=== PATIENT | male | born 1985 | race Caucasian/White ===

== ENCOUNTER 2016-08-30 16:56 | Emergency (ER) | payer SELFPAY ==
[2016-08-30] MEDS ORDERED: OXYCODONE-ACETAMINOPHEN 5-325 MG TABLET PO ONE (18:44)
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
== END 2016-08-30 20:10 | disposition home or self-care (01) ==
LOC: ER 16:56
DX: R52 Pain, unspecified (principal); S16.1XXA Strain of muscle, fascia and tendon at neck level, initial encounter; S30.0XXA Contusion of lower back and pelvis, initial encounter; F17.200 Nicotine dependence, unspecified, uncomplicated; V89.2XXA Person injured in unspecified motor-vehicle accident, traffic, initial encounter
CPT/HCPCS: 72050; 99284

== ENCOUNTER 2016-09-02 14:20 | Emergency (ER) | payer OTHER ==
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
[2016-09-02 16:23] VITALS: BP 118/78
== END 2016-09-02 16:21 | disposition home or self-care (01) ==
LOC: ER 14:20
DX: S46.812A Strain of other muscles, fascia and tendons at shoulder and upper arm level, left arm, initial encounter (principal); M54.2 Cervicalgia; V87.7XXA Person injured in collision between other specified motor vehicles (traffic), initial encounter
CPT/HCPCS: 99283

== ENCOUNTER 2017-07-01 16:39 | Emergency (ER) | payer OTHER ==
[2017-07-01] MEDS ORDERED: OXYCODONE-ACETAMINOPHEN 5-325 MG TABLET PO ONE (19:11)
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
[2017-07-01 20:43] VITALS: BP 111/70
== END 2017-07-01 20:45 | disposition home or self-care (01) ==
LOC: ER 16:39
DX: S16.1XXA Strain of muscle, fascia and tendon at neck level, initial encounter (principal); M54.2 Cervicalgia; M79.604 Pain in right leg; M79.605 Pain in left leg; M54.9 Dorsalgia, unspecified; V49.50XA Passenger injured in collision with unspecified motor vehicles in traffic accident, initial encounter; Z91.013 Allergy to seafood
CPT/HCPCS: 72125; 73552; 99284

== ENCOUNTER 2017-12-03 19:39 | Emergency (ER) | payer SELFPAY ==
--- NOTE | 2017-12-03 20:56 | ER Document Report ---
ED Medical Screen (RME) - General Chief Complaint: Abdominal Pain Stated Complaint: ABDOMINAL PAIN Time Seen by Provider: 12/03/17 20:54 Mode of Arrival: Ambulatory Information source: Patient Notes: Patient presents with complaint of low abdominal and low back pain for the last 3-4 months. Patient reports that he has been getting worse over the last few weeks. Patient concerned that he may have cancer as he reports that cancer runs in his family. Patient denies any fever. Reports nausea and fatigue. Patient reports that he saw a doctor in [place] 2 months ago for the same symptoms, had a workup done but never heard anything back from them. Patient reports that he is a tobacco user, denies any EtOH or drug use. Patient reports past medical history of hyperlipidemia, hypertension and an unknown issue with his kidney and liver. Exam: Mild tenderness to palpation across low abdomen. I have greeted and performed a rapid initial assessment of this patient. A comprehensive ED assessment and evaluation of the patient, analysis of test results and completion of the medical decision making process will be conducted by additional ED providers. Dictation of this chart was performed using voice recognition software; therefore, there may be some unintended grammatical errors. TRAVEL OUTSIDE OF THE [place] IN LAST 30 DAYS: No - Related Data Allergies/Adverse Reactions: iodine [Iodine] Allergy (Verified 09/02/16 14:39) Shellfish * [Shellfish] Allergy (Verified 09/02/16 14:39) Past Medical History Renal/ Medical History: Reports: Hx Kidney Stones. Denies: Hx Peritoneal Dialysis Psychiatric Medical History: Reports: Hx Depression Infectious Medical History: Denies: Hx MRSA Past Surgical History: Reports: Hx Appendectomy, Hx Orthopedic Surgery - Immunizations Immunizations up to date: Yes Hx Diphtheria, Pertussis, Tetanus Vaccination: Yes Physical Exam - Vital signs Vitals: Temp Pulse Resp BP Pulse Ox 98.6 F 83 16 105/65 99 12/03/17 20:10 12/03/17 20:10 12/03/17 20:10 12/03/17 20:10 12/03/17 20:10 Course - Vital Signs Vital signs: Temp Pulse Resp BP Pulse Ox 98.6 F 83 16 105/65 99 12/03/17 20:10 12/03/17 20:10 12/03/17 20:10 12/03/17 20:10 12/03/17 20:10
[2017-12-03 21:39] LABS: ABSOLUTE EOSINOPHILS # (AUTO) 0.2 10^3/uL (0.0-0.6); ABSOLUTE LYMPHOCYTES (AUTO) 2.4 10^3/uL (0.5-4.7); ABSOLUTE MONOCYTES (AUTO) 0.8 10^3/uL (0.1-1.4); ABSOLUTE NEUT (AUTO) 4.9 10^3/uL (1.7-8.2); BASOPHILS % (AUTO) 0.4 % (0-2); EOSINOPHILS % (AUTO) 2.7 % (0-6); HEMATOCRIT 45.9 % (37.9-51.0); HEMOGLOBIN 15.6 g/dL (13.5-17.0); MEAN CORPUSCULAR HEMOGLOBIN 30.7 pg (27.0-33.4); MEAN CORPUSCULAR VOLUME 90 fl (80-97); PLATELET COUNT 364 10^3/uL (150-450); RED BLOOD COUNT 5.09 10^6/uL (4.35-5.55); RED CELL DISTRIBUTION WIDTH 13.7 % (11.5-14.0); SEGMENTED NEUTROPHILS % (AUTO) 57.9 % (42-78); TOTAL CELLS COUNTED % (AUTO) 100 %; WHITE BLOOD COUNT 8.4 10^3/uL (4.0-10.5)
[2017-12-03 21:45] LABS: AMORPHOUS SEDIMENT,URINE TRACE /HPF; APPEARANCE,URINE CLOUDY; BILIRUBIN,URINE NEGATIVE (NEGATIVE); COLOR,URINE YELLOW; GLUCOSE, URINE NEGATIVE (NEGATIVE); KETONES,URINE NEGATIVE (NEGATIVE); LEUKOCYTE ESTERASE,URINE NEGATIVE (NEGATIVE); NITRITE,URINE NEGATIVE (NEGATIVE); PROTEIN,URINE NEGATIVE (NEGATIVE); URINE SPECIFIC GRAVITY 1.009; UROBILINOGEN,URINE NEGATIVE mg/dL (<2.0)
[2017-12-03 21:54] LABS: ALANINE AMINOTRANSFERASE 27 U/L (21-72); ALBUMIN 4.8 g/dL (3.5-5.0); ALKALINE PHOSPHATASE 104 U/L (38-126); ANION GAP 16 (5-19); ASPARTATE AMINO TRANSFERASE 21 U/L (17-59); BILIRUBIN,DIRECT 0.2 mg/dL (0.0-0.4); BILIRUBIN,TOTAL 0.5 mg/dL (0.2-1.3); BLOOD UREA NITROGEN 8 mg/dL (7-20); CARBON DIOXIDE 30 mmol/L (22-30); CHLORIDE 96 mmol/L (98-107); GLUCOSE 111 mg/dL (75-110); LIPASE 381.3 U/L (23-300); POTASSIUM 4.5 mmol/L (3.6-5.0); SODIUM 142.1 mmol/L (137-145); TOTAL PROTEIN 8.5 g/dL (6.3-8.2)
[2017-12-04] MEDS ORDERED: CYCLOBENZAPRINE HCL 10 MG TABLET PO ONE (01:03)
[2017-12-04] MEDS ORDERED: IBUPROFEN 600 MG TABLET PO ONE (01:03)
[2017-12-04] MEDS ORDERED: LIDOCAINE 5% (700 MG) TRANSDERMAL ADH..PATCH TP ONE (01:03)
--- NOTE | 2017-12-04 01:05 | ER Document Report ---
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 He describes the pain as a throbbing, aching, intermittent pain mostly present at night. He states moving or lying on the area worsens the pain. He has not training to improve the pain. He denies a history of similar symptoms prior to the past 4 months. He saw his general doctor without resolution. The patient states that he is worried he might have cancer because his dad of cancer several months ago. He denies any unintentional weight loss, vomiting, hematochezia, hematemesis, shortness of breath, chest pain, fever or constitutional symptoms. TRAVEL OUTSIDE OF THE [place] IN LAST 30 DAYS: No - Related Data Allergies/Adverse Reactions: iodine [Iodine] Allergy (Verified 09/02/16 14:39) Shellfish * [Shellfish] Allergy (Verified 09/02/16 14:39) Past Medical History - General Information source: Patient - Social History Smoking Status: Current Every Day Smoker Frequency of alcohol use: None Drug Abuse: None Lives with: Spouse/Significant other Family History: Reviewed & Not Pertinent, Malignancy Patient has suicidal ideation: No Patient has homicidal ideation: No Renal/ Medical History: Reports: Hx Kidney Stones. Denies: Hx Peritoneal Dialysis Psychiatric Medical History: Reports: Hx Depression Infectious Medical History: Denies: Hx MRSA Past Surgical History: Reports: Hx Appendectomy, Hx Orthopedic Surgery - Immunizations Immunizations up to date: Yes Hx Diphtheria, Pertussis, Tetanus Vaccination: Yes Hx Pneumococcal Vaccination: 05/14/09 Review of Systems - Review of Systems Notes: Constitutional: Negative for fever. HENT: Negative for sore throat. Eyes: Negative for visual changes. Cardiovascular: Negative for chest pain. Respiratory: Negative for shortness of breath. Gastrointestinal: Positive for right lower abdominal pain Genitourinary: Negative for dysuria. Musculoskeletal: Positive for right low back pain Skin: Negative for rash. Neurological: Negative for headaches, weakness or numbness. 10 point ROS negative except as marked above and in HPI. Physical Exam - Vital signs Vitals: Temp Pulse Resp BP Pulse Ox 98.6 F 83 16 105/65 99 12/03/17 20:10 12/03/17 20:10 12/03/17 20:10 12/03/17 20:10 12/03/17 20:10 Interpretation: Normal Notes: PHYSICAL EXAMINATION: GENERAL: Well-appearing, well-nourished and in no acute distress. HEAD: Atraumatic, normocephalic. EYES: Pupils equal round and reactive to light, extraocular movements intact, sclera anicteric, conjunctiva are normal. ENT: nares patent, oropharynx clear without exudates. Moist mucous membranes. NECK: Normal range of motion, supple without lymphadenopathy LUNGS: Breath sounds clear to auscultation bilaterally and equal. No wheezes rales or rhonchi. HEART: Regular rate and rhythm without murmurs ABDOMEN: Soft, nontender, normoactive bowel sounds. No guarding, no rebound. No masses appreciated. EXTREMITIES: Normal range of motion, no pitting or edema. No cyanosis. NEUROLOGICAL: No focal neurological deficits. Moves all extremities spontaneously and on command. PSYCH: Normal mood, normal affect. SKIN: Warm, Dry, normal turgor, no rashes or lesions noted. Course - Re-evaluation Re-evalutation: 12/04/17 01:03 Patient presents with 4-5 months of nighttime right low back pain and right lower abdominal pain that is not present during the day. On examination he has no focal abdominal tenderness, rebound or guarding. No focal areas of midline tenderness, step-offs or deformities. Labs unremarkable. Clinical history and exam is not consistent with testicular torsion, epididymitis, acute event assessment bowel perforation, bowel obstruction. I have encouraged patient to seek treatment for his known hepatitis C. History appears most consistent with likely muscle spasms or irritation as it is only present at night after he has been up working all day. At this time will discharge with return precautions and follow-up recommendations. Verbal discharge instructions given a the bedside and opportunity for questions given. Medication warnings reviewed. Patient is in agreement with this plan and has verbalized understanding of return precautions and the need for primary care follow-up in the next 24-72 hours. - Vital Signs Vital signs: Temp Pulse Resp BP Pulse Ox 98.1 F 62 18 99/63 L 98 12/04/17 01:21 12/04/17 01:21 12/04/17 01:21 12/04/17 01:21 12/04/17 01:21 - Laboratory Result Diagrams: 12/03/17 21:22 12/03/17 21:22 Laboratory results interpreted by me: 12/03/17 21:22 Chloride 96 L Glucose 111 H Total Protein 8.5 H Lipase 381.3 H Discharge - Discharge Clinical Impression: Abdominal pain, chronic, right lower quadrant Chronic low back pain Qualifiers: Back pain laterality: right Sciatica presence: without sciatica Qualified Code( s): M54.5 - Low back pain Condition: Good Disposition: HOME, SELF-CARE Additional Instructions: For your pain: Take ibuprofen 600 mg every 6 hours as needed for pain. Take the Flexeril at night as needed for pain the prevents you from sleeping. Return if you have weight loss, persistent vomiting, worsening pain, fever greater than 100.4 F, or any other symptoms that are worrisome to you. Prescriptions: Cyclobenzaprine HCl [Flexeril 10 mg Tablet] 10 mg PO QHS PRN #15 tablet PRN Reason:
[2017-12-04 01:25] VITALS: BP 99/63
== END 2017-12-04 02:03 | disposition home or self-care (01) ==
LOC: ER 19:39
DX: G89.29 Other chronic pain (principal); R10.31 Right lower quadrant pain; M54.5 Low back pain; B19.20 Unspecified viral hepatitis C without hepatic coma; F17.200 Nicotine dependence, unspecified, uncomplicated; Z87.442 Personal history of urinary calculi; Z90.49 Acquired absence of other specified parts of digestive tract; Z91.013 Allergy to seafood; Z80.9 Family history of malignant neoplasm, unspecified
CPT/HCPCS: 36415; 80053; 81001; 83690; 85025; 99284

== ENCOUNTER 2018-02-28 13:53 | Emergency (ER) | payer SELFPAY ==
[2018-02-28 13:57] VITALS: BP 99/68
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
== END 2018-02-28 14:35 | disposition home or self-care (01) ==
LOC: ER 13:53
DX: G89.29 Other chronic pain (principal); F90.9 Attention-deficit hyperactivity disorder, unspecified type
CPT/HCPCS: 99281

== ENCOUNTER 2018-07-25 23:40 | Emergency (ER) | payer SELFPAY ==
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
[2018-07-26] MEDS ORDERED: IBUPROFEN 600 MG TABLET PO ONE (08:42)
[2018-07-26] MEDS ORDERED: TRAMADOL HCL 50 MG TABLET PO ONE (08:42)
[2018-07-26 08:55] VITALS: BP 98/67
== END 2018-07-26 08:58 | disposition home or self-care (01) ==
LOC: ER 23:40
DX: S00.83XA Contusion of other part of head, initial encounter (principal); R51 Headache; Y04.0XXA Assault by unarmed brawl or fight, initial encounter; Z87.442 Personal history of urinary calculi; Z91.013 Allergy to seafood
CPT/HCPCS: 70450; 99283

== ENCOUNTER 2018-09-23 15:16 | Emergency (ER) | payer SELFPAY ==
--- NOTE | 2018-09-23 16:22 | ER Document Report ---
HPI - HPI Time Seen by Provider: 09/23/18 16:10 Pain Level: 2 Context: Patient is a 33-year-old male who presents emergency department with a chief complaint of a sore throat. He has had his sore throat for the past 4 to 5 days. He denies any sick contacts. He does state that he does not know if he has had a fever. His temperature here in the emergency department is 97.8. Denies any difficulty breathing. - CONSTITUTIONAL Constitutional: REPORTS: Chills. DENIES: Fever - EENT EENT: REPORTS: Sore Throat. DENIES: Ear Pain, Nasal Drainage-Clear, Nasal Drainage-Purulent, Congestion, Eye problems - NEURO Neurology: DENIES: Headache - CARDIOVASCULAR Cardiovascular: DENIES: Chest pain - RESPIRATORY Respiratory: DENIES: Trouble Breathing, Coughing - REPRODUCTIVE Reproductive: DENIES: : - MUSCULOSKELETAL Musculoskeletal: DENIES: Extremity pain - DERM Skin Color: Normal Skin Problems: None Past Medical History - Social History Smoking Status: Never Smoker Family History: Reviewed & Not Pertinent, Malignancy Renal/ Medical History: Reports: Hx Kidney Stones. Denies: Hx Peritoneal Dialysis Psychiatric Medical History: Reports: Hx Depression Infectious Medical History: Denies: Hx MRSA Past Surgical History: Reports: Hx Appendectomy, Hx Orthopedic Surgery - Immunizations Immunizations up to date: Yes Hx Diphtheria, Pertussis, Tetanus Vaccination: Yes Hx Pneumococcal Vaccination: 05/14/09 Vertical Provider Document - CONSTITUTIONAL Agree With Documented VS: Yes Exam Limitations: No Limitations General Appearance: No Apparent Distress - INFECTION CONTROL TRAVEL OUTSIDE OF THE [place] IN LAST 30 DAYS: No - HEENT HEENT: Atraumatic, Normocephalic, PERRLA, Pharyngeal Erythema. negative: Conjuctival Injection, Pharyngeal Exudate, Pharyngeal Tenderness, Tympanic Membrane Red, Tympanic Membrane Bulging - NECK Neck: Normal Inspection, Supple - RESPIRATORY Respiratory: Breath Sounds Normal, No Respiratory Distress - CARDIOVASCULAR Cardiovascular: Regular Rate, Regular Rhythm Pulses: Normal: Radial - MUSCULOSKELETAL/EXTREMETIES Musculoskeletal/Extremeties: FROM - NEURO Level of Consciousness: Awake, Alert, Appropriate Motor/Sensory: No Motor Deficit, No Sensory Deficit, No Pronator Drift - DERM Integumentary: Warm, Dry, No Rash Course - Re-evaluation Re-evalutation: 09/23/18 16:22 Patient's rapid strep will be sent. 09/23/18 17:43 Patient's rapid strep test is negative. Throat culture was sent. I have advised him that he should take his allergy medication he is prescribed. He also mentioned that there is a new cat in his house. I have advised him that the cat dander may cause his sore throat and he is going to follow-up with a primary care provider in regards to this visit. I do not suspect a peritonsillar abscess, or any life-threatening etiology at this time. Verbal discharge instructions were given to the patient. They verbalized understanding. They are stable for discharge. - Vital Signs Vital signs: Temp Pulse Resp BP Pulse Ox 97.8 F 67 103/59 L 98 09/23/18 15:31 09/23/18 15:31 09/23/18 15:31 09/23/18 15:31 Discharge - Discharge Clinical Impression: Sore throat Condition: Stable Disposition: HOME, SELF-CARE Additional Instructions: You were seen today in the emergency department for sore throat. Your rapid strep test is negative. Your symptoms may be due to the cat you were exposed to. Please continue to take allergy medication. You can add Flonase to help with your symptoms. Please use as directed. Please follow-up with a primary care provider in regards to this visit. If you develop a fever greater than 100.4 F, or have any symptoms that are worrisome to you, please return to the emergency department. Prescriptions: Fluticasone Propionate [Flonase Nasal [place] 50 Mcg/[place] 16 gm] 2 sprays NASL DAILY #1 inhaler
[2018-09-23 17:57] VITALS: BP 110/67
== END 2018-09-23 17:57 | disposition home or self-care (01) ==
LOC: ER 15:16
DX: J02.9 Acute pharyngitis, unspecified (principal); R68.83 Chills (without fever)
CPT/HCPCS: 87070; 87880; 99283

== ENCOUNTER 2018-10-12 16:42 | Emergency (ER) | payer OTHER ==
[2018-10-12 16:48] VITALS: BP 104/58
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
== END 2018-10-12 17:18 | disposition home or self-care (01) ==
LOC: ER 16:42
DX: M54.2 Cervicalgia (principal); M25.512 Pain in left shoulder; V89.2XXA Person injured in unspecified motor-vehicle accident, traffic, initial encounter; Z87.442 Personal history of urinary calculi
CPT/HCPCS: 99283

== ENCOUNTER 2018-12-14 21:22 | Emergency (ER) | payer SELFPAY ==
[2018-12-14 21:30] VITALS: BP 132/54
--- NOTE | 2018-12-14 21:55 | ER Document Report ---
ED Medical Screen (RME) - General Chief Complaint: Fall Injury Stated Complaint: FALL/BACK PAIN Time Seen by Provider: 12/14/18 21:45 Notes: Patient is a 33-year-old male presents to the emergency department with a chief complaint of low back pain. Patient states about 2 hours ago he was repairing shingles on a roof when he was on the telephone and walked right off the roof because he was not paying attention. Patient states this is about 9 to 10 feet. Patient states he did fall into the bushes and states that they caught his fall. Patient states he fell in between a standing in a sitting position. Patient denies head or neck pain. Patient denies loss of consciousness. Patient denies blood thinners. Patient denies loss of bowel or bladder. Patient denies numbness or tingling to the lower extremities. Patient states that he is having some lower back pain specifically on the right side as it feels like muscle. TRAVEL OUTSIDE OF THE [place] IN LAST 30 DAYS: No - Related Data Allergies/Adverse Reactions: iodine [Iodine] Allergy (Verified 12/14/18 21:23) Shellfish * [Shellfish] Allergy (Verified 12/14/18 21:23) Past Medical History Renal/ Medical History: Reports: Hx Kidney Stones. Denies: Hx Peritoneal Dialysis Psychiatric Medical History: Reports: Hx Depression Infectious Medical History: Denies: Hx MRSA Past Surgical History: Reports: Hx Appendectomy, Hx Orthopedic Surgery - Immunizations Immunizations up to date: Yes Hx Diphtheria, Pertussis, Tetanus Vaccination: Yes Physical Exam - Vital signs Vitals: Temp Pulse Resp BP Pulse Ox 97.9 F 90 16 132/54 H 100 12/14/18 21:26 12/14/18 21:26 12/14/18 21:26 12/14/18 21:26 12/14/18 21:26 - Back Back: Normal, Vertebra tenderness Notes: Lumbar midline tenderness Course - Re-evaluation Re-evalutation: 12/14/18 21:55 I have greeted and performed a rapid initial assessment of this patient. A comprehensive ED assessment and evaluation of the patient, analysis of test results and completion of the medical decision making process will be conducted by additional ED providers. - Vital Signs Vital signs: Temp Pulse Resp BP Pulse Ox 97.9 F 90 16 132/54 H 100 12/14/18 21:26 12/14/18 21:26 12/14/18 21:26 12/14/18 21:26 12/14/18 21:26
--- NOTE | 2018-12-14 22:39 | RADIOLOGY REPORT (SQ) ---
5 VIEWS OF LUMBAR SPINE EXAM DATE: 12/14/2018 9:52 PM CDT HISTORY: Lower back pain. COMPARISON: None. FINDINGS: No acute compression fracture is seen. There is normal alignment without subluxation. The disc spaces are preserved. The sacroiliac joints are intact. No evidence of spondylolysis on the oblique views. IMPRESSION: No acute compression fracture of the lumbar spine is seen. However, please note that if there is point tenderness or high clinical concern, a CT scan is recommended.
--- NOTE | 2018-12-14 22:46 | RADIOLOGY REPORT (SQ) ---
EXAM DESCRIPTION: XR SACRUM COCCYX 2 OR MORE VIEWS COMPLETED DATE/TME: 12/14/2018 21:53 CLINICAL HISTORY: 33 years, Male, fall off roof, lower back pain COMPARISON: None. NUMBER OF VIEWS: TECHNIQUE: LIMITATIONS: None. FINDINGS: No evidence of sacral or coccyx fracture. Mineralization of bone appears normal. IMPRESSION: No fracture. copyright 2010 [employer]- All Rights Reserved
[2018-12-14] MEDS ORDERED: HYDROCODONE/ACETAMINOPHEN 5-325 MG (6 TAB/ER DISP) PO PRN (22:57)
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
== END 2018-12-14 23:50 | disposition home or self-care (01) ==
LOC: ER 21:22
DX: M54.5 Low back pain (principal); M54.9 Dorsalgia, unspecified; W13.2XXA Fall from, out of or through roof, initial encounter; F17.200 Nicotine dependence, unspecified, uncomplicated
CPT/HCPCS: 72110; 72220; 99283

== ENCOUNTER 2018-12-19 13:12 | Emergency (ER) | payer OTHER ==
--- NOTE | 2018-12-19 13:55 | ER Document Report ---
HPI - HPI Patient complains to provider of: low back pain Time Seen by Provider: 12/19/18 13:40 Onset: Other Onset/Duration: Persistent Quality of pain: Achy Severity: Moderate Pain Level: 3 Context: This 33-year-old male presents emergency department with complaints of low back pain since he fell off a roof approximately 5 days ago. The roof was approximately 8 feet high, pt landed in bushes. Patient received x-rays and pain medication here at [facility]. he was instructed to return to the emergency department for continued pain. Patient reports he still hurting. He denies urinary or bowel incontinence or retention. Denies numbness tingling. Ambulating without any problems. Patient is still working. Just reports it hurts when he bends over, no fever vomiting diarrhea. Associated Symptoms: None Exacerbated by: Denies Relieved by: Denies Similar symptoms previously: Yes Recently seen / treated by doctor: Yes - REPRODUCTIVE Reproductive: DENIES: : Past Medical History - General Information source: Patient - Social History Smoking Status: Current Every Day Smoker Cigarette use (# per day): Yes Frequency of alcohol use: Occasional Drug Abuse: None Family History: Reviewed & Not Pertinent, Malignancy Patient has suicidal ideation: No Patient has homicidal ideation: No Renal/ Medical History: Reports: Hx Kidney Stones. Denies: Hx Peritoneal Dialysis Psychiatric Medical History: Reports: Hx Depression Infectious Medical History: Denies: Hx MRSA Past Surgical History: Reports: Hx Appendectomy, Hx Orthopedic Surgery - Immunizations Immunizations up to date: Yes Hx Diphtheria, Pertussis, Tetanus Vaccination: Yes Hx Pneumococcal Vaccination: 05/14/09 Vertical Provider Document - CONSTITUTIONAL Agree With Documented VS: Yes Exam Limitations: No Limitations General Appearance: WD/WN, No Apparent Distress - Patient ambulating without problems no grimacing - INFECTION CONTROL TRAVEL OUTSIDE OF THE [place] IN LAST 30 DAYS: No - HEENT HEENT: Atraumatic, Normocephalic - NECK Neck: Supple - RESPIRATORY Respiratory: No Respiratory Distress - CARDIOVASCULAR Cardiovascular: Regular Rate - GI/ABDOMEN Gastrointestinal: Abdomen Soft, Abdomen Non-Tender - BACK Back: Normal Inspection - No obvious deformity no swelling no erythema no warmth complains of low vertebral tenderness L5, Sacral area, good distal movement, ambulating without problems, no weakness - MUSCULOSKELETAL/EXTREMETIES Musculoskeletal/Extremeties: MAEW, FROM, Non-Tender Course - Re-evaluation Re-evalutation: 12/19/18 14:36 33 year old male returns for c/o low back pain since falling off a roof one week ago. Urine Color STRAW 12/19/18 13:51 Urine Appearance CLEAR 12/19/18 13:51 Urine pH 6.0 (5.0-9.0) 12/19/18 13:51 Ur Specific [place] 1.005 12/19/18 13:51 Urine Protein NEGATIVE mg/dL (NEGATIVE) 12/19/18 13:51 Urine Glucose (UA) NEGATIVE mg/dL (NEGATIVE) 12/19/18 13:51 Urine Ketones NEGATIVE mg/dL (NEGATIVE) 12/19/18 13:51 Urine Blood NEGATIVE (NEGATIVE) 12/19/18 13:51 Urine Nitrite NEGATIVE (NEGATIVE) 12/19/18 13:51 Ur Leukocyte Esterase NEGATIVE (NEGATIVE) 12/19/18 13:51 UA negative 12/19/18 15:[address] 12/19/18 13:50 IMPRESSION: Right-sided L4-5 and L5-S1 foraminal narrowing from disc bulge and facet hypertrophy. 12/19/18 Patient was instructed on results of CT. Instructed to follow-up with his primary care to get a referral to orthopedics spinal specialist he verbalized understand all instructions. Patient looks in no distress denies urinary bowel incontinence or retention. He was instructed on red flags of back pain and to return here for any of the symptoms. He verbalized understanding to all instructions. - Vital Signs Vital signs: Temp Pulse Resp BP Pulse Ox 97.4 F 91 20 106/69 99 12/19/18 13:15 12/19/18 13:15 12/19/18 13:15 12/19/18 13:15 12/19/18 13:15 Discharge - Discharge Clinical Impression: L4-L5 disc bulge Low back pain Qualifiers: Chronicity: unspecified Back pain laterality: unspecified Sciatica presence: without sciatica Qualified Code(s): M54.5 - Low back pain Condition: Stable Disposition: HOME, SELF-CARE Instructions: Use of [id number]-Gys-Fsurrgl Ibuprofen ([facility]), Ice Packs ([facility]), Low Back Pain ([facility]) Additional Instructions: *You have been evaluated for back pain, bulging disc *Take ibuprofen as indicated *Rest/Ice packs as indicated *take medication for acute pain *Follow up with a primary care provider within one week for recheck or referral to orthopedics as indicated *Return to ED for worsening condition, changes, needs, difficulty voiding or having a bowel movement, worsening pain, fever Prescriptions: Oxycodone HCl/Acetaminophen [Percocet 5-325 mg Tablet] 1 tab PO ASDIR PRN #15 tablet PRN Reason:
[2018-12-19 14:08] LABS: APPEARANCE,URINE CLEAR; BILIRUBIN,URINE NEGATIVE (NEGATIVE); COLOR,URINE STRAW; GLUCOSE, URINE NEGATIVE (NEGATIVE); KETONES,URINE NEGATIVE (NEGATIVE); LEUKOCYTE ESTERASE,URINE NEGATIVE (NEGATIVE); NITRITE,URINE NEGATIVE (NEGATIVE); PROTEIN,URINE NEGATIVE (NEGATIVE); URINE SPECIFIC GRAVITY 1.005; UROBILINOGEN,URINE NEGATIVE mg/dL (<2.0)
[2018-12-19 14:14] LABS: ADD MANUAL MICROSCOPIC YES
[2018-12-19] MEDS ORDERED: IBUPROFEN 800 MG TABLET PO ONE (15:27)
--- NOTE | 2018-12-19 15:54 | RADIOLOGY REPORT (SQ) ---
EXAM DESCRIPTION: CT LUMBAR SPINE WITHOUT COMPLETED DATE/TIME: 12/19/2018 2:56 pm REASON FOR STUDY: fall, still hurting COMPARISON: Lumbar spine plain films 12/14/2018 TECHNIQUE: Axial images acquired through the lumbar spine without intravenous contrast. Images revi ewed with lung, soft tissue and bone windows. Reconstructed coronal and sagittal MPR images reviewed . All images stored on PACS. All CT scanners at this facility use dose modulation, iterative reconstruction, and/or weight based d osing when appropriate to reduce radiation dose to as low as reasonably achievable (ALARA). [facility]: Dose Right [facility]: CareDose [facility]: Dose Right [facility]: Teradose 4D [facility]: DinnDinn RADIATION DOSE: 15.6 mGy. LIMITATIONS: None. FINDINGS: SEGMENTATION: Normal. No transitional anatomy. ALIGNMENT: Normal. VERTEBRAL BODIES: No fractures. No dislocation. No acute findings. DISCS: T12-L1, L1-2, L2-3 and L3-4 are unremarkable. At L4-5, broad diffuse posterior disc bulge and bony spurring is present right greater than left. Th ere is mild bilateral facet and ligament flavum thickening. Mild central canal stenosis is present w ith flattening of the thecal sac into a triangular shape best shown on axial image 62. There is mode rate to high-grade right L4-5 foraminal narrowing from disc bulge and bony spurring, with partial eff acement of the fat around the exiting right L4 nerve root in the neural foramen on sagittal reconstru ction image 21. Mild left foraminal narrowing without exiting left L4 nerve root impingement. At L5-S1, there is asymmetric right-sided foraminal and lateral disc bulge and bony spurring with hig h-grade right foraminal narrowing best shown on sagittal images 19 and 20. Partial effacement of the fat around the exiting right L5 nerve root in the neural foramen. PEDICLES, TRANSVERSE PROCESSES: No fractures. No dislocation. FACETS, POSTERIOR ELEMENTS: No fractures. No dislocation. HARDWARE: None in the spine. VISUALIZED RIBS: No fractures. 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 IMPRESSION: Right-sided L4-5 and L5-S1 foraminal narrowing from disc bulge and facet hypertrophy. TECHNICAL DOCUMENTATION: JOB ID: [id number] Quality ID # [id number]: Final reports with documentation of one or more dose reduction techniques (e.g., Au tomated exposure control, adjustment of the mA and/or kV according to patient size, use of iterative reconstruction technique) 2010 [employer]- All Rights Reserved Reading location - IP/workstation name: [email or web address]
[2018-12-19 16:16] VITALS: BP 101/57
== END 2018-12-19 16:16 | disposition home or self-care (01) ==
LOC: ER 13:12
DX: M51.26 Other intervertebral disc displacement, lumbar region (principal); M54.5 Low back pain; W13.2XXD Fall from, out of or through roof, subsequent encounter; F17.210 Nicotine dependence, cigarettes, uncomplicated
CPT/HCPCS: 72131; 81001; 99284

== ENCOUNTER 2018-12-22 13:55 | Emergency (ER) | payer BC, OTHER ==
--- NOTE | 2018-12-22 14:37 | ER Document Report ---
ED Skin Rash/Insect Bite/Abscs - General Chief Complaint: Skin Problem Stated Complaint: POSSIBLE ALLERGIC REACTION Time Seen by Provider: 12/22/18 14:23 Primary Care Provider: [facility] [Provider Group] - Follow up as needed Mode of Arrival: Ambulatory Information source: Patient Notes: 33-year-old male presented to ED for complaint of rash and itching all over his body. Patient states he was seen on December 14 after he fell injuring his back. He states he had back pain and they started him on hydrocodone. He states when he ran out of that on the eighth he came back in because his pain was actually hurting worse. He states they put him on oxycodone. He states he started itching after the oxycodone so he stopped taking that but he does not have any more of the hydrocodone and is itching all over and cannot stand the itching. Patient is alert oriented respirations regular and unlabored speaking in full sentences walking with even steady gait. Patient has no signs or symptoms of cauda equina. He is walking freely. TRAVEL OUTSIDE OF THE [place] IN LAST 30 DAYS: No - HPI Patient complains to provider of: Skin rash/lesion Onset: Other - On 20 December Onset/Duration: Persistent Quality of pain: Other - Continued pain in his back but itching from the sacrum Severity: Mild Pain Level: 2 Skin Character: Rash Quality of rash: Itchy Identify cause: Yes - He states is from the oxycodone Exacerbated by: Other - Continues to have pain from his back pain Relieved by: Denies Similar symptoms previously: Yes Recently seen / treated by doctor: Yes - Related Data Allergies/Adverse Reactions: iodine [Iodine] Allergy (Verified 12/19/18 13:12) Shellfish * [Shellfish] Allergy (Verified 12/19/18 13:12) Past Medical History - General Information source: Patient - Social History Smoking Status: Current Every Day Smoker Cigarette use (# per day): Yes - Pack a day Smoking Education Provided: Yes - 4 minutes Frequency of alcohol use: Occasional Drug Abuse: Marijuana Occupation: Construction Lives with: Family Family History: Reviewed & Not Pertinent, Malignancy Patient has suicidal ideation: No Patient has homicidal ideation: No - Past Medical History Cardiac Medical History: Reports: None Pulmonary Medical History: Reports: None EENT Medical History: Reports: None Neurological Medical History: Reports: None Endocrine Medical History: Reports: None Renal/ Medical History: Reports: Hx Kidney Stones Malignancy Medical History: Reports None GI Medical History: Reports: None Musculoskeletal Medical History: Reports Hx Musculoskeletal Deformity, Reports Hx Musculoskeletal Trauma Skin Medical History: Reports None Psychiatric Medical History: Reports: Hx Anxiety, Hx Depression Traumatic Medical History: Reports: None Infectious Medical History: Reports: None Past Surgical History: Reports: Hx Appendectomy, Hx Orthopedic Surgery - Immunizations Immunizations up to date: Yes Hx Diphtheria, Pertussis, Tetanus Vaccination: Yes Hx Pneumococcal Vaccination: 05/14/09 Review of Systems - Review of Systems Constitutional: No symptoms reported EENT: No symptoms reported Cardiovascular: No symptoms reported Respiratory: No symptoms reported Gastrointestinal: No symptoms reported Genitourinary: No symptoms reported Male Genitourinary: No symptoms reported Musculoskeletal: No symptoms reported Skin: No symptoms reported, Rash - With picked skin and scratches from itching Hematologic/Lymphatic: No symptoms reported Neurological/Psychological: No symptoms reported -: Yes All other systems reviewed and negative Physical Exam - Vital signs Vitals: Temp Pulse Resp BP Pulse Ox 98.4 F 81 18 100/67 98 12/22/18 14:06 12/22/18 14:06 12/22/18 14:06 12/22/18 14:06 12/22/18 14:06 Interpretation: Normal - General General appearance: Appears well, Alert - HEENT Head: Normocephalic, Atraumatic Eyes: Normal Pupils: PERRL - Respiratory Respiratory status: No respiratory distress Chest status: Nontender Breath sounds: Normal Chest palpation: Normal - Cardiovascular Rhythm: Regular Heart sounds: Normal auscultation Murmur: No - Abdominal Inspection: Normal Distension: No distension Bowel sounds: Normal Tenderness: Nontender Organomegaly: No organomegaly - Back Back: Normal, Tender Notes: No signs or symptoms of cauda equina, no loss of control of bowel bladder, no loss of control of lower extremities, no loss of sensation to the lower ext remities and no saddle anesthesia. - Extremities General upper extremity: Normal inspection, Nontender, Normal color, Normal ROM, Normal temperature General lower extremity: Normal inspection, Nontender, Normal color, Normal ROM, Normal temperature, Normal weight bearing. No: Fabiola's sign - Neurological Neuro grossly intact: Yes Cognition: Normal Orientation: AAOx4 Joann Coma Scale Eye Opening: Spontaneous [place] Coma Scale Verbal: Oriented [place] Coma Scale Motor: Obeys Commands [place] Coma Scale Total: 15 Speech: Normal Motor strength normal: LUE, RUE, LLE, RLE Sensory: Normal - Psychological Associated symptoms: Normal affect, Normal mood - Skin Skin Temperature: Warm Skin Moisture: Dry Skin Color: Normal Skin irregularity: Rash, other - Open scratched skin Location of irregularity: Generalized - Except for the center of his back Course - Vital Signs Vital signs: Temp Pulse Resp BP Pulse Ox 98.0 F 69 16 111/66 98 12/22/18 15:43 12/22/18 15:43 12/22/18 15:43 12/22/18 15:43 12/22/18 15:43 Discharge - Discharge Clinical Impression: Urticaria due to drug allergy, L4-L5 disc bulge Condition: Stable Disposition: HOME, SELF-CARE Instructions: Family Physicians / Practices Additional Instructions: LOW BACK PAIN: Three out of every four people will have an episode of disabling back pain during their lifetime. Most commonly the pain is due to straining of the muscles and ligaments in the low back. Usual treatment includes: (1) Rest on a firm surface. Avoid lying on your stomach. (2) Ice pack the painful area. After a few days, gentle heat may be used intermittently to relax the area, or ice packs can be continued. (3) Medication may be needed -- muscle relaxers and antiinflammatory medicines are commonly used. (4) As the back improves, exercises are prescribed to strengthen the back and abdominal muscles. Your doctor will advise you on the proper care for your back at each stage in your recovery. You may be better in a few days -- or healing may take several weeks. If new symptoms of a "herniated disc" (radiation of pain, numbness, or tingling down the back of the leg or weakness in the leg) occur, you should be re-examined. Further testing may be necessary. ACUTE ALLERGIC REACTION: Your symptoms are due to an allergic reaction. Allergy can cause hives, swelling of the hands, feet, and face, hoarseness, and difficulty swallowing or breathing. It may be due to exposure to medication, animal dander, foods, infection, or insect bites. Medication is a common cause, even when prior use of this same medication caused no problems. Acute treatment may include adrenalin and antihistamines. Usually, the specific allergic agent can't be identified unless repeated episodes occur. Home treatment includes the following: (1) Stop any suspicious medications. This will be discussed with you. (2) Oral antihistamines for the next four to five days. Example, diphenhydramine (Benadryl) every four hours. (3) You may also use cimetidine (Tagamet), ranitidine (Zantac), or famotidine (Pepcid) every four hours if diphenhydramine is not controlling itching and hives. (4) Avoid aspirin until the hives completely disappear. (5) Avoid hot baths or showers until the hives are completely gone. Call the doctor if faintness, difficulty swallowing, tightness in the chest, or wheezing occurs. ACID-SUPPRESSING MEDICATION: You have a prescription for medicine which reduces the stomach's secretion of acid. Examples include Zantac, Tagament, and Pepcid. These drugs are often used to allow healing of ulcers or esophagitis. They may be needed to prevent recurrence of ulcers in some patients, or to prevent damage from acid reflux in the esophagus. Take all medication as prescribed, even after the pain is gone. Regular antacids may be added as needed if you have symptoms while taking this medicine. These medications sometimes are prescribed for allergic reactions because they have anti-histaminic effects and relieve the rash and itching of the reaction. There are usually no side effects from this medication. But, in rare cases and particularly in the elderly, serious problems can occur. Contact your doctor if there is fever, rash, hallucinations, confusion, or unusual bruising. Contact your doctor at once if you develop lightheadedness, black or bloody stool, or bloody vomitus. USE OF DIPHENHYDRAMINE: The use of diphenhydramine (Benadryl) has been recommended to control allergic symptoms. The 25 mg strength is available over- the-counter, as well as the elixir. This antihistamine is used for many symptoms. It's useful for itching, watering eyes and nose, allergic swelling, hives, and insect stings. The medication can be repeated four times daily. Age Elixir (12.5 mg/tsp) 25 mg pill 2-3 yr 1/2 tsp 4-8 yr 1 tsp 9-14 yr 2 tsp one tab adult 1-2 tabs Antihistamines may cause drowsiness, especially with the first dose. Do not operate machinery or drive while under the effects of the medication. Do not combine the medication with alcohol, or with any other medication without talking to your doctor. ORAL NARCOTIC MEDICATION: As we discussed after this prescription you will get no more narcotics for the back pain. You need to follow-up with primary doctor or someone to get your pain medications. You do have a new diagnosis of bulging disc since the eighth of this month so you are getting some narcotics today you will only be getting 10 pills and then you need to follow-up with somebody to get further medications if you require them. You also need to follow-up with a back specialist to treat your bulging disc. You have been given a prescription for pain control. This medication is a narcotic. It's best taken with food, as nausea can result if taken on an empty stomach. Don't operate machinery or drive within six hours of taking this medication. Do not combine this medicine with alcohol, or with any medication which can cause sedation (such as cold tablets or sleeping pills) unless you get permission from the physician. Narcotics tend to cause constipation. If possible, drink plenty of fluids and eat a diet high in fiber and fruits. Please be aware that prescription narcotics also have the potential for abuse. People become addicted to these medications because of the general sense of wellbeing that they induce. This feeling along with a significant reduction in tension, anxiety, and aggression provides a stimulating seductive quality to these drugs. Once your pain is under control, we encourage you to discard your unused narcotics. ICE PACKS: Apply ice packs frequently against the painful area. Many different schedules are recommended, such as "20 minutes on, 20 minutes off" or "one hour ice, two hours rest." If you need to work, you may need to go longer between ic e treatments. You should plan to have the area ice packed AT LEAST one fourth of the time. The ice should be applied over the wrap, tape, or splint, or over a layer of cloth -- not directly against the skin. Some ice bags have a built-in cloth and can be put directly on the skin. WARM PACKS: After approximately two days, apply gentle heat (such as a heating pad or hot water bottle) for about 20 to 30 minutes about every two hours -- at least four times daily. Warmth and elevation will help you make a more rapid recovery, and will ease the pain considerably. Do not use HOT heat, and never apply heat for longer than 30 minutes. The continuous heat can invisibly damage skin and muscles -- even when no burn is seen on the surface. Damaged muscles can make you MORE sore. FOLLOW-UP CARE: If you have been referred to a physician for follow-up care, call the physicians office for an appointment as you were instructed or within the next two days. If you experience worsening or a significant change in your symptoms, notify the physician immediately or return to the Emergency Department at any time for re-evaluation. Prescriptions: Hydromorphone HCl [Dilaudid 2 mg Tablet] 2 mg PO Q8HP PRN #10 tablet PRN Reason: For Pain Scale 4-5 Forms: Smoking Cessation Education Referrals: [facility] ([facility]) [Provider Group] - Follow up as needed
[2018-12-22 15:07] LABS: APPEARANCE,URINE CLEAR; BILIRUBIN,URINE NEGATIVE (NEGATIVE); COLOR,URINE YELLOW; GLUCOSE, URINE NEGATIVE (NEGATIVE); KETONES,URINE NEGATIVE (NEGATIVE); LEUKOCYTE ESTERASE,URINE NEGATIVE (NEGATIVE); NITRITE,URINE NEGATIVE (NEGATIVE); PROTEIN,URINE NEGATIVE (NEGATIVE); URINE SPECIFIC GRAVITY 1.013; UROBILINOGEN,URINE NEGATIVE mg/dL (<2.0)
[2018-12-22 15:22] LABS: URINE AMPHETAMINES SCREEN NEGATIVE; URINE BARBITURATES SCREEN NEGATIVE; URINE BENZODIAZEPINES SCREEN NEGATIVE; URINE COCAINE SCREEN NEGATIVE; URINE MARIJUANA (THC) SCREEN NEGATIVE; URINE METHADONE SCREEN NEGATIVE; URINE PHENCYCLIDINE SCREEN NEGATIVE
[2018-12-22 15:44] VITALS: BP 111/66
== END 2018-12-22 15:49 | disposition home or self-care (01) ==
LOC: ER 13:55
DX: L50.0 Allergic urticaria (principal); T40.2X5A Adverse effect of other opioids, initial encounter; M51.86 Other intervertebral disc disorders, lumbar region; W19.XXXA Unspecified fall, initial encounter; F12.10 Cannabis abuse, uncomplicated; F17.210 Nicotine dependence, cigarettes, uncomplicated; Z71.6 Tobacco abuse counseling; Z91.013 Allergy to seafood
CPT/HCPCS: 80307; 81001; 99284; 99406

== ENCOUNTER 2019-01-03 13:16 | Emergency (ER) | payer SELFPAY ==
[2019-01-03 13:23] VITALS: BP 103/73
--- NOTE | 2019-01-03 14:31 | ER Document Report ---
HPI - HPI Time Seen by Provider: 01/03/19 14:00 Pain Level: 3 Notes: Patient is a 33-year-old male presented to the emergency department acute on chronic back pain. Patient reports low back pain across the entire lumbar region. He denies any recent trauma. He denies any loss of control of bowel or bladder, denies any urinary retention, fevers or saddle anesthesia. This is patient's third visit here in a short amount of time. Patient was seen here and was prescribed Percocet, he returned stating that he had an allergy to the Percocet per the providers note and was given Dilaudid. Patient returns again today requesting additional narcotic prescriptions. Patient has not followed up with any specialist. - REPRODUCTIVE Reproductive: DENIES: : Past Medical History - General Information source: Patient - Social History Smoking Status: Never Smoker Chew tobacco use (# tins/day): No Frequency of alcohol use: None Drug Abuse: None Family History: Reviewed & Not Pertinent, Malignancy Patient has suicidal ideation: No Patient has homicidal ideation: No Renal/ Medical History: Reports: Hx Kidney Stones. Denies: Hx Peritoneal Dialysis Musculoskeletal Medical History: Reports Hx Musculoskeletal Deformity, Reports Hx Musculoskeletal Trauma Psychiatric Medical History: Reports: Hx Anxiety, Hx Depression Infectious Medical History: Denies: Hx MRSA Past Surgical History: Reports: Hx Appendectomy, Hx Orthopedic Surgery - Immunizations Immunizations up to date: Yes Hx Diphtheria, Pertussis, Tetanus Vaccination: Yes Hx Pneumococcal Vaccination: 05/14/09 Vertical Provider Document - CONSTITUTIONAL Notes: PHYSICAL EXAMINATION: GENERAL: Well-appearing, well-nourished and in no acute distress. HEAD: Atraumatic, normocephalic. EYES: Pupils equal round extraocular movements intact, conjunctiva are normal. ENT: Nares patent NECK: Normal range of motion LUNGS: No respiratory distress Musculoskeletal: Normal range of motion, tenderness to palpation to bilateral lumbar paraspinous areas, no vertebral tenderness, step-off or deformity. NEUROLOGICAL: Normal speech, normal gait. PSYCH: Normal mood, normal affect. SKIN: Warm, Dry, normal turgor, no rashes or lesions noted. - INFECTION CONTROL TRAVEL OUTSIDE OF THE [place] IN LAST 30 DAYS: No Course - Re-evaluation Re-evalutation: Presentation of a well appearing patient complaining of acute on chronic back pain. No rapid progression of symptoms, systemic symptoms including fevers, chills, weight loss, history of recent bacterial infection, bilateral symptoms, numbness, weakness, difficulty walking, urinary retention or bowel incontinence, personal history of cancer, immunosuppression, diabetes, known AAA, or history of IV drug use. Exam is without point tenderness over vertebral bodies, pu lsatile abdominal mass, and patient has symmetric and intact lower extremity strength, sensation, and reflexes without clonus. 2+ symmetric medial malleolar and dorsalis pedis pulses Based on history and physical, I have a very low suspicion of a concerning etiology of pain including epidural compression syndrome, spinal infection, transverse myelitis, malignancy, abdominal aortic aneurysm, renal colic, acute lower extremity claudication, neurogenic claudication, ankylosing spondylitis, or other intra-abdominal process. Due to absence of concerning risk factors in history and physical as well as absence of rapidly progressive, severe, or bilateral symptoms, will defer imaging at this point. Plan to manage conservatively with outpatient analgesia, analgesia, and physical therapy. - Acetaminophen 650 q 4 + Toradol - Continue normal daily activities as tolerated by pain - Provide with standard musculoskeletal back pain exercise instructions - Instruct to follow up with primary care provider if symptoms not improving - Provide careful return precautions and concerning symptoms to watch for. Patient presenting with chronic back pain. Patient has seen multiple providers in this emergency department is received several prescriptions for controlled substances. Unfortunately the last time he was here he came stating that he was having an allergic reaction to the Percocet so Dilaudid was prescribed for him. Now he states that he was actually having an allergic reaction to hydrocodone and is requesting a Percocet prescription. I do not feel at this time it is appropriate to continue prescribing controlled substances to this patient. He needs to follow-up with either pain management or neurosurgery for further evaluation of his chronic back pain. - Vital Signs Vital signs: Temp Pulse Resp BP Pulse Ox 98.6 F 120 H 16 103/73 97 01/03/19 13:22 01/03/19 13:22 01/03/19 13:22 01/03/19 13:01/03/19 13:22 Discharge - Discharge Clinical Impression: Back pain Qualifiers: Back pain location: low back pain Chronicity: chronic Back pain laterality: bilateral Sciatica presence: without sciatica Qualified Code(s): M54.5 - Low back pain Condition: Stable Disposition: HOME, SELF-CARE Additional Instructions: You have been seen in the Emergency Department (ED) today for back pain. Your workup and exam have not shown any acute abnormalities and you are likely suffering from muscle strain or possible problems with your discs, but there is no treatment that will fix your symptoms at this time. Please take the Toradol that has been prescribed as directed. You should also purchase a local lidocaine cream such as "aspercreme with lidocaine" and use per bottle instructions to the affected area. Apply heat to the area as often as you are able. Continue to keep active and avoid prolonged periods of bed rest. Please follow up with your doctor as soon as possible regarding today's ED visit and your back pain. Return to the ED for worsening back pain, fever, weakness or numbness of either leg, or if you develop either (1) an inability to urinate or have bowel movements, or (2) loss of your ability to control your bathroom functions (if you start having "accidents"), or if you develop other new symptoms that concern you. We are not able to fill any additional controlled substance prescriptions in this emergency department for your back pain as you have been seen here multiple times for this. You must follow-up with pain management for any additional pain concerns and consider following up with primary care or neurosurgery for your chronic back pain. [facility] [address] Prescriptions: Ketorolac Tromethamine [Toradol 10 mg Tablet] 10 mg PO Q8HP PRN #20 tablet PRN Reason: Referrals: AVANI CHANEY MD [ACTIVE STAFF] - Follow up as needed
== END 2019-01-03 14:41 | disposition home or self-care (01) ==
LOC: ER 13:16
DX: M54.5 Low back pain (principal); M54.9 Dorsalgia, unspecified; G89.29 Other chronic pain; Z79.899 Other long term (current) drug therapy
CPT/HCPCS: 99283

== ENCOUNTER 2019-01-29 16:45 | Emergency (ER) | payer SELFPAY ==
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
[2019-01-29 17:31] VITALS: BP 114/59
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
== END 2019-01-29 18:22 | disposition home or self-care (01) ==
LOC: ER 16:45
DX: S09.90XA Unspecified injury of head, initial encounter (principal); S69.92XA Unspecified injury of left wrist, hand and finger(s), initial encounter; Y08.02XA Assault by strike by baseball bat, initial encounter; F17.200 Nicotine dependence, unspecified, uncomplicated
CPT/HCPCS: 70486; 99284

== ENCOUNTER 2019-02-06 19:36 | Emergency (ER) | payer OTHER ==
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
[2019-02-06] MEDS ORDERED: IBUPROFEN 600 MG TABLET PO ONE (20:28)
[2019-02-06] MEDS ORDERED: OXYCODONE-ACETAMINOPHEN 5-325 MG TABLET PO ONE (20:28)
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
[2019-02-06] MEDS ORDERED: HYDROCODONE/ACETAMINOPHEN 5-325 MG (6 TAB/ER DISP) PO PRN (22:13)
[2019-02-06 22:30] VITALS: BP 106/80
== END 2019-02-06 22:27 | disposition home or self-care (01) ==
LOC: ER 19:36
DX: M54.2 Cervicalgia (principal); V28.4XXA Motorcycle driver injured in noncollision transport accident in traffic accident, initial encounter; F17.200 Nicotine dependence, unspecified, uncomplicated; Z91.013 Allergy to seafood
CPT/HCPCS: 99283; 72125; L0172

== ENCOUNTER 2019-02-13 13:57 | Emergency (ER) | payer OTHER ==
[2019-02-13 14:06] VITALS: BP 101/68
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
--- NOTE | 2019-02-13 14:55 | RADIOLOGY REPORT (SQ) ---
EXAM DESCRIPTION: SHOULDER LEFT 2 OR MORE VIEWS COMPLETED DATE/TIME: 02/13/2019 2:34 pm REASON FOR STUDY: pain continues from last week COMPARISON: None. NUMBER OF VIEWS: Three views. TECHNIQUE: Internal rotation, external rotation, and Y view images acquired of the left shoulder. LIMITATIONS: None. FINDINGS: MINERALIZATION: Normal. BONES: No acute fracture. No worrisome bone lesions. JOINTS: No glenohumeral dislocation. Acromioclavicular joint intact. VISUALIZED LUNGS AND RIBS: No pneumothorax. No rib fracture. SOFT TISSUES: No radiopaque foreign body. OTHER: No other significant finding. IMPRESSION: NEGATIVE STUDY OF THE LEFT SHOULDER. NO RADIOGRAPHIC EVIDENCE OF ACUTE INJURY. TECHNICAL DOCUMENTATION: JOB ID: [id number] [employer]- All Rights Reserved Reading location - IP/workstation name: [email or web address]
[2019-02-13] MEDS ORDERED: HYDROCODONE/ACETAMINOPHEN 5-325 MG (6 TAB/ER DISP) PO PRN (14:56)
--- NOTE | 2019-02-13 14:57 | RADIOLOGY REPORT (SQ) ---
EXAM DESCRIPTION: L SPINE WHOLE COMPLETED DATE/TIME: 02/13/2019 2:34 pm REASON FOR STUDY: pain continues from last week COMPARISON: 12/14/2018, 08/26/2014 NUMBER OF VIEWS: Five views including obliques. TECHNIQUE: AP, lateral, oblique, and sacral radiographic images acquired of the lumbar spine. LIMITATIONS: None. FINDINGS: MINERALIZATION: Normal. SEGMENTATION: Normal. No transitional anatomy. ALIGNMENT: Normal. VERTEBRAE: Maintained height. No fracture or worrisome bone lesion. DISCS: Preserved height. No significant osteophytes or end plate irregularity. POSTERIOR ELEMENTS: Pedicles and facets are intact. No pars defect or posterior arch defects. HARDWARE: None in the spine. PARASPINAL SOFT TISSUES: Normal. PELVIS: Intact as visualized. No fractures or worrisome bone lesions. SI joints intact. OTHER: No other significant finding. IMPRESSION: NORMAL 5 VIEW LUMBAR SPINE. TECHNICAL DOCUMENTATION: JOB ID: [id number] [employer]- All Rights Reserved Reading location - IP/workstation name: [email or web address]
[2019-02-13] MEDS ORDERED: MORPHINE SULFATE 10 MG/ML INJ ONE (15:29)
== END 2019-02-13 15:32 | disposition home or self-care (01) ==
LOC: ER 13:57
DX: M54.5 Low back pain (principal); M25.512 Pain in left shoulder; V28.4XXA Motorcycle driver injured in noncollision transport accident in traffic accident, initial encounter; Z87.442 Personal history of urinary calculi
CPT/HCPCS: 72110

== ENCOUNTER 2019-05-10 19:28 | Emergency (ER) | payer SELFPAY ==
[2019-05-10] MEDS ORDERED: TRAMADOL HCL 50 MG TABLET PO ONE (20:01)
[2019-05-10 20:03] VITALS: BP 119/66
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
== END 2019-05-10 20:18 | disposition home or self-care (01) ==
LOC: ER 19:28
DX: S40.812A Abrasion of left upper arm, initial encounter (principal); S40.811A Abrasion of right upper arm, initial encounter; R51 Headache; M79.10 Myalgia, unspecified site; X99.0XXA Assault by sharp glass, initial encounter
CPT/HCPCS: 99283

== ENCOUNTER 2019-05-10 22:16 | Emergency (ER) | payer SELFPAY ==
[2019-05-11 01:32] LABS: ABSOLUTE BASOPHILS # (AUTO) 0.1 10^3/uL (0.0-0.2); ABSOLUTE EOSINOPHILS # (AUTO) 0.4 10^3/uL (0.0-0.6); ABSOLUTE LYMPHOCYTES (AUTO) 2.9 10^3/uL (0.5-4.7); ABSOLUTE MONOCYTES (AUTO) 0.7 10^3/uL (0.1-1.4); ABSOLUTE NEUT (AUTO) 3.5 10^3/uL (1.7-8.2); BASOPHILS % (AUTO) 0.8 % (0-2); EOSINOPHILS % (AUTO) 5.8 % (0-6); HEMATOCRIT 39.8 % (37.9-51.0); HEMOGLOBIN 13.7 g/dL (13.5-17.0); LYMPHOCYTES % (AUTO) 37.7 % (13-45); MEAN CORPUSCULAR HEMOGLOBIN 30.8 pg (27.0-33.4); MEAN CORPUSCULAR HGB CONC 34.5 g/dL (32.0-36.0); MEAN CORPUSCULAR VOLUME 89 fl (80-97); PLATELET COUNT 342 10^3/uL (150-450); RED BLOOD COUNT 4.45 10^6/uL (4.35-5.55); RED CELL DISTRIBUTION WIDTH 13.4 % (11.5-14.0); SEGMENTED NEUTROPHILS % (AUTO) 46.7 % (42-78); TOTAL CELLS COUNTED % (AUTO) 100 %; WHITE BLOOD COUNT 7.6 10^3/uL (4.0-10.5)
[2019-05-11 01:46] LABS: ACETAMINOPHEN < 10 ug/mL (10-30); ALBUMIN 3.9 g/dL (3.5-5.0); ALCOHOL < 10 mg/dL (NONE DETECTED); ALKALINE PHOSPHATASE 110 U/L (38-126); ANION GAP 10 (5-19); ASPARTATE AMINO TRANSFERASE 21 U/L (17-59); BILIRUBIN,DIRECT 0.2 mg/dL (0.0-0.4); BILIRUBIN,TOTAL 0.5 mg/dL (0.2-1.3); BLOOD UREA NITROGEN 14 mg/dL (7-20); CALCIUM 9.5 mg/dL (8.4-10.2); CARBON DIOXIDE 27 mmol/L (22-30); CHLORIDE 104 mmol/L (98-107); GLUCOSE 99 mg/dL (75-110); POTASSIUM 3.8 mmol/L (3.6-5.0); SALICYLATE < 1.0 mg/dL (2.0-20.0); TOTAL PROTEIN 7.3 g/dL (6.3-8.2)
[2019-05-11 01:48] LABS: APPEARANCE,URINE CLEAR; BILIRUBIN,URINE NEGATIVE (NEGATIVE); COLOR,URINE YELLOW; GLUCOSE, URINE NEGATIVE (NEGATIVE); KETONES,URINE NEGATIVE (NEGATIVE); LEUKOCYTE ESTERASE,URINE NEGATIVE (NEGATIVE); NITRITE,URINE NEGATIVE (NEGATIVE); PROTEIN,URINE NEGATIVE (NEGATIVE); URINE SPECIFIC GRAVITY 1.018; UROBILINOGEN,URINE NEGATIVE mg/dL (<2.0)
[2019-05-11 02:12] LABS: URINE BARBITURATES SCREEN NEGATIVE; URINE BENZODIAZEPINES SCREEN NEGATIVE; URINE COCAINE SCREEN NEGATIVE; URINE MARIJUANA (THC) SCREEN NEGATIVE; URINE METHADONE SCREEN NEGATIVE; URINE PHENCYCLIDINE SCREEN NEGATIVE
--- NOTE | 2019-05-11 04:29 | ER Document Report ---
ED General - General Chief Complaint: Medical Clearance Stated Complaint: MEDICAL CLEARANCE Time Seen by Provider: 05/11/19 04:27 Mode of Arrival: Ambulatory TRAVEL OUTSIDE OF THE [place] IN LAST 30 DAYS: No - HPI Patient complains to provider of: Patient reports that he has come to the ED for medical clearance. Onset: Other - Patient has a chronic substance abuse of methamphetamine and on occasion marijuana. Patient states he is interested in a rehab program. Denies any medical problems. Onset/Duration: Constant Quality of pain: No pain Severity: Moderate Pain Level: 0 Associated symptoms: Other - Skin itching from doing methamphetamine therefore patient scratches and claws at his skin causing multiple scratch bray on his chest arms and back. Notes: Denies suicidal or homicidal ideation. Denies any hallucinations. Denies any known medical problems. Patient states his substance use and abuse is methamphetamines and occasional marijuana. - Related Data Allergies/Adverse Reactions: iodine [Iodine] Allergy (Verified 05/11/19 01:09) Shellfish * [Shellfish] Allergy (Verified 05/11/19 01:09) Past Medical History - Social History Smoking Status: Never Smoker Frequency of alcohol use: None Drug Abuse: Methamphetamine Lives with: Friend Family History: Reviewed & Not Pertinent, Malignancy Patient has suicidal ideation: No Patient has homicidal ideation: No Renal/ Medical History: Reports: Hx Kidney Stones. Denies: Hx Peritoneal Dialysis Musculoskeletal Medical History: Reports Hx Musculoskeletal Deformity, Reports Hx Musculoskeletal Trauma Skin Medical History: Reports Other - Skin rash itching secondary to using methamphetamines. Psychiatric Medical History: Reports: Hx Anxiety, Hx Depression Infectious Medical History: Denies: Hx MRSA Past Surgical History: Reports: Hx Appendectomy, Hx Orthopedic Surgery - Immunizations Immunizations up to date: Yes Hx Diphtheria, Pertussis, Tetanus Vaccination: Yes Hx Pneumococcal Vaccination: 05/14/09 Physical Exam - Vital signs Vitals: Temp Pulse Resp BP Pulse Ox 98.1 F 80 18 100/61 100 05/10/19 22:28 05/10/19 22:28 05/10/19 22:28 05/10/19 22:28 05/10/19 22:28 Interpretation: Normal - General General appearance: Appears well, Alert - HEENT Head: Normocephalic, Atraumatic Eyes: Normal Pupils: PERRL - Respiratory Respiratory status: No respiratory distress Chest status: Nontender Breath sounds: Normal Chest palpation: Normal - Cardiovascular Rhythm: Regular Heart sounds: Normal auscultation Murmur: No - Abdominal Inspection: Normal Distension: No distension Bowel sounds: Normal Tenderness: Nontender Organomegaly: No organomegaly - Back Back: Normal, Nontender - Extremities General upper extremity: Normal inspection, Nontender, Normal color, Normal ROM, Normal temperature General lower extremity: Normal inspection, Nontender, Normal color, Normal ROM, Normal temperature, Normal weight bearing. No: Fabiola's sign - Neurological Neuro grossly intact: Yes Cognition: Normal Orientation: AAOx4 Joann Coma Scale Eye Opening: Spontaneous [place] Coma Scale Verbal: Oriented [place] Coma Scale Motor: Obeys Commands Joann Coma Scale Total: 15 Speech: Normal Motor strength normal: LUE, RUE, LLE, RLE Sensory: Normal - Psychological Associated symptoms: Normal affect, Normal mood - Skin Skin Temperature: Warm Skin Moisture: Dry Skin Color: Normal Location of irregularity: Chest, Back, Extremities Character of irregularity: Other - Multiple abrasions on chest back extremities neck. No active bleeding or drainage from any of the sites. No evidence of any infection. Course - Vital Signs Vital signs: Temp Pulse Resp BP Pulse Ox 98.3 F 72 18 125/74 100 05/11/19 02:32 05/11/19 02:32 05/11/19 02:32 05/11/19 02:32 05/11/19 02:32 - Laboratory Result Diagrams: 05/11/19 01:10 05/11/19 01:10 Laboratory results interpreted by me: 05/11/19 01:10 Salicylates < 1.0 L Acetaminophen < 10 L - EKG Interpretation by Me Additional EKG results interpreted by me: 05/11/19 04:51 Twelve-lead EKG done at 05/11/2019 at 129 shows a normal sinus rhythm rate of 61 with no acute changes. Discharge - Discharge Clinical Impression: Substance abuse, Skin excoriation Disposition: PSYCH HOSP/UNIT Additional Instructions: Patient has a chronic condition of substance abuse with methamphetamines. Patient is medically cleared to enroll in a rehab program at his choosing.
[2019-05-11 05:15] VITALS: BP 101/66
--- NOTE | 2019-05-11 19:29 | EKG REPORT ---
SEVERITY:- NORMAL ECG - SINUS RHYTHM : Confirmed by: Madeleine Mcfarlane MD 11-May-2019 19:28:58
== END 2019-05-11 06:18 | disposition other institution (70) ==
LOC: ER 22:16
DX: F19.10 Other psychoactive substance abuse, uncomplicated (principal); F42.4 Excoriation (skin-picking) disorder
CPT/HCPCS: 36415; 80053; 80307; 81001; 85025; 93005; 93010; 99283

== ENCOUNTER 2019-05-24 22:52 | Emergency (ER) | payer SELFPAY ==
--- NOTE | 2019-05-24 23:14 | ER Document Report ---
ED Medical Screen (RME) - General Chief Complaint: Suicidal Ideation Stated Complaint: PSYCH Time Seen by Provider: 05/24/19 23:02 TRAVEL OUTSIDE OF THE [place] IN LAST 30 DAYS: No - HPI Notes: 05/24/19 23:12 33-year-old male to the emergency department with complaints of suicidal thoughts. He states that is been going on for about a week. He states that he is homeless and he has been using drugs. He last used fentanyl several days ago. He states that if he can get his hands on drugs will try anything. He also states that he does not really feel like he is addicted to drugs. He does smoke. He does not drink alcohol. He has never attempted to hurt himself. He denies of angel plan tonight. He also states that he has not eaten in 3 to 4 days. I performed a brief medical screening exam on this patient determined he will need further evaluation and management by main side provider. I have placed initial orders to help expedite the patient's care. - Related Data Allergies/Adverse Reactions: iodine [Iodine] Allergy (Verified 05/11/19 01:09) Shellfish * [Shellfish] Allergy (Verified 05/11/19 01:09) Past Medical History Renal/ Medical History: Reports: Hx Kidney Stones. Denies: Hx Peritoneal Dialysis Musculoskeltal Medical History: Reports Hx Musculoskeletal Deformity, Reports Hx Musculoskeletal Trauma Psychiatric Medical History: Reports: Hx Anxiety, Hx Depression Infectious Medical History: Denies: Hx MRSA Past Surgical History: Reports: Hx Appendectomy, Hx Orthopedic Surgery - Immunizations Immunizations up to date: Yes Hx Diphtheria, Pertussis, Tetanus Vaccination: Yes Physical Exam - Vital signs Vitals: Temp Pulse Resp BP Pulse Ox 99.0 F 91 20 120/62 100 05/24/19 22:56 05/24/19 22:56 05/24/19 22:56 05/24/19 22:56 05/24/19 22:56 Course - Vital Signs Vital signs: Temp Pulse Resp BP Pulse Ox 99.0 F 91 20 120/62 100 05/24/19 22:56 05/24/19 22:56 05/24/19 22:56 05/24/19 22:56 05/24/19 22:56
[2019-05-24 23:43] LABS: ABSOLUTE EOSINOPHILS # (AUTO) 0.4 10^3/uL (0.0-0.6); ABSOLUTE LYMPHOCYTES (AUTO) 1.9 10^3/uL (0.5-4.7); ABSOLUTE MONOCYTES (AUTO) 0.6 10^3/uL (0.1-1.4); ABSOLUTE NEUT (AUTO) 4.4 10^3/uL (1.7-8.2); BASOPHILS % (AUTO) 0.6 % (0-2); EOSINOPHILS % (AUTO) 5.4 % (0-6); HEMATOCRIT 41.4 % (37.9-51.0); HEMOGLOBIN 14.1 g/dL (13.5-17.0); LYMPHOCYTES % (AUTO) 26.1 % (13-45); MEAN CORPUSCULAR HGB CONC 34.1 g/dL (32.0-36.0); MEAN CORPUSCULAR VOLUME 91 fl (80-97); MONOCYTES % (AUTO) 8.5 % (3-13); PLATELET COUNT 302 10^3/uL (150-450); RED BLOOD COUNT 4.56 10^6/uL (4.35-5.55); RED CELL DISTRIBUTION WIDTH 13.4 % (11.5-14.0); SEGMENTED NEUTROPHILS % (AUTO) 59.4 % (42-78); TOTAL CELLS COUNTED % (AUTO) 100 %; WHITE BLOOD COUNT 7.4 10^3/uL (4.0-10.5)
[2019-05-25 00:02] LABS: ALBUMIN 4.3 g/dL (3.5-5.0); ALKALINE PHOSPHATASE 128 U/L (38-126); ANION GAP 11 (5-19); ASPARTATE AMINO TRANSFERASE 74 U/L (17-59); BILIRUBIN,DIRECT 0.1 mg/dL (0.0-0.4); BILIRUBIN,TOTAL 1.2 mg/dL (0.2-1.3); BLOOD UREA NITROGEN 11 mg/dL (7-20); CALCIUM 9.6 mg/dL (8.4-10.2); CARBON DIOXIDE 29 mmol/L (22-30); CHLORIDE 98 mmol/L (98-107); GLUCOSE 89 mg/dL (75-110); POTASSIUM 3.8 mmol/L (3.6-5.0); TOTAL PROTEIN 8.1 g/dL (6.3-8.2)
[2019-05-25 00:03] LABS: ALCOHOL < 10 mg/dL (NONE DETECTED)
[2019-05-25 00:11] LABS: URINE BARBITURATES SCREEN NEGATIVE; URINE BENZODIAZEPINES SCREEN NEGATIVE; URINE COCAINE SCREEN NEGATIVE; URINE MARIJUANA (THC) SCREEN NEGATIVE; URINE METHADONE SCREEN NEGATIVE; URINE PHENCYCLIDINE SCREEN NEGATIVE
[2019-05-25 00:16] LABS: URINE AMPHETAMINES SCREEN UNCONFIRMED POSITIVE
--- NOTE | 2019-05-25 00:47 | ER Document Report ---
ED General - General Information source: Patient TRAVEL OUTSIDE OF THE [place] IN LAST 30 DAYS: No <PANFILO NORRIS IV - Last Filed: 05/25/19 00:47> <TICO FLORES - Last Filed: 05/25/19 12:35> - General Chief Complaint: Suicidal Ideation Stated Complaint: PSYCH Time Seen by Provider: 05/24/19 23:02 - HPI Notes: Patient is a 33-year-old male who presents to the emergency department complaining of suicidal ideation. Patient states he has had thoughts of SI for about a week. Patient denies homicidal ideation. Patient admits to substance abuse recently but at the same time states he does not feel that he is addicted to drugs. Patient also states that he is currently homeless. Patient states nothing exacerbates his suicidal ideation and nothing seems to improve his suicidal ideation thoughts. (PANFILO NORRIS IV) - Related Data Allergies/Adverse Reactions: iodine [Iodine] Allergy (Verified 05/11/19 01:09) Shellfish * [Shellfish] Allergy (Verified 05/11/19 01:09) Past Medical History - General Information source: Patient - Social History Smoking Status: Current Some Day Smoker Family History: Reviewed & Not Pertinent, Malignancy Patient has suicidal ideation: Yes Patient has homicidal ideation: No Renal/ Medical History: Reports: Hx Kidney Stones. Denies: Hx Peritoneal Dialysis Musculoskeletal Medical History: Reports Hx Musculoskeletal Deformity, Reports Hx Musculoskeletal Trauma Psychiatric Medical History: Reports: Hx Anxiety, Hx Depression Infectious Medical History: Denies: Hx MRSA Past Surgical History: Reports: Hx Appendectomy, Hx Orthopedic Surgery - Immunizations Immunizations up to date: Yes Hx Diphtheria, Pertussis, Tetanus Vaccination: Yes Hx Pneumococcal Vaccination: 05/14/09 <PANFILO NORRIS IV - Last Filed: 05/25/19 00:47> Review of Systems - Review of Systems Constitutional: No symptoms reported EENT: No symptoms reported Cardiovascular: No symptoms reported Respiratory: No symptoms reported Gastrointestinal: No symptoms reported Genitourinary: No symptoms reported Male Genitourinary: No symptoms reported Musculoskeletal: No symptoms reported Skin: No symptoms reported Hematologic/Lymphatic: No symptoms reported Neurological/Psychological: Suicidal ideation. denies: Homicidal ideation -: Yes All other systems reviewed and negative <PANFILO NORRIS IV - Last Filed: 01/12/20 00:47> Physical Exam <PANFILO NORRIS IV - Last Filed: 05/25/19 00:47> - Vital signs Vitals: Temp Pulse Resp BP Pulse Ox 99.0 F 91 20 120/62 100 05/24/19 22:56 05/24/19 22:56 05/24/19 22:56 05/24/19 22:56 05/24/19 22:56 - Notes Notes: PHYSICAL EXAMINATION: GENERAL: Patient is alert and oriented x3, appears disheveled but is in no acute distress. HEAD: Atraumatic, normocephalic. EYES: Pupils equal round and reactive to light, extraocular movements intact, sclera anicteric, conjunctiva are normal. ENT: nares patent, oropharynx clear without exudates. Moist mucous membranes. NECK: Normal range of motion, supple without lymphadenopathy LUNGS: Breath sounds clear to auscultation bilaterally and equal. No wheezes rales or rhonchi. HEART: Regular rate and rhythm without murmurs ABDOMEN: Soft, nontender, normoactive bowel sounds. No guarding, no rebound. No masses appreciated. EXTREMITIES: Normal range of motion, no pitting or edema. No cyanosis. NEUROLOGICAL: No focal neurological deficits. Moves all extremities spontaneously and on command. PSYCH: Normal mood, normal affect. SKIN: Warm, Dry, normal turgor. Patient has multiple lesions on his forearms bilaterally the appearance of which are consistent with neurotic excoriations.. (PANFILO NORRIS IV) Course - Laboratory Result Diagrams: 05/24/19 23:15 05/24/19 23:15 <PANFILO NORRIS IV - Last Filed: 05/25/19 00:47> - Laboratory Result Diagrams: 05/24/19 23:15 05/24/19 23:15 <TICO FLORES - Last Filed: 05/25/19 12:35> - Vital Signs Vital signs: Temp Pulse Resp BP Pulse Ox 97.9 F 74 14 93/50 L 95 05/25/19 10:32 05/25/19 10:32 05/25/19 10:32 05/25/19 10:32 05/25/19 10:32 - Laboratory Laboratory results interpreted by me: 05/24/19 23:15 AST 74 H Alkaline Phosphatase 128 H - EKG Interpretation by Me Additional EKG results interpreted by me: 05/25/19 00:49 EKG obtained on 05/24/2019 at 2354 hrs. was interpreted by this MD. Findings: Normal sinus rhythm, heart rate 73, normal axis, P waves preceding QRS complexes, QRS complexes appear narrow, there are no obvious patterns of ST elevation or depression present to suggest acute myocardial ischemia or infarction. Impression normal sinus rhythm with nonspecific ST segments. (PANFILO NORRIS IV) Discharge <PANFILO NORRIS IV - Last Filed: 05/25/19 00:47> <TICO - Last Filed: 05/25/19 12:35> - Discharge Clinical Impression: Suicidal ideation, Substance abuse, Homeless Condition: Stable Disposition: HOME, SELF-CARE Additional Instructions: You have been evaluated by both medical and behavioral health teams and have been deemed appropriate for discharge. You have been provided both the local mental health and substance abuse providers, detox facilities, economic resources, and mobile crisis contact information. AMPHETAMINE / METHAMPHETAMINE ABUSE: Amphetamines are addicting stimulants. Amphetamines overstimulate the nervous system and give a false feeling of power and mastery. These drugs may be obtained as prescription pills for weight loss, narcolepsy, or attention-deficit disorder. More often they're bought as an illegal street drug, methamphetamine (crank, crystal, speed). Using amphetamines repeatedly can lead to serious medical problems including malnutrition, severe depression, and paranoia. It can take increasing amounts to feel good. Eventually, there will be a "burn out." When you go off amphetamines there is a period of depression that may last for weeks or even months. High doses of amphetamines can cause seizures, confusion, hallucinations, delusions, high blood pressure, muscle damage, heart damage, or sudden . Many times these deadly complications occur even with "normal" doses. Injection of amphetamines is risky for developing abscesses, endocarditis (heart infection), pneumonia, and AIDS. Withdrawal from amphetamines often causes anxiety, depression, and drug cravings. Some users become paranoid and psychotic. There may be cramps, nausea, and vomiting. Many treatment programs are available, but you must make the decision to quit. Medication can be prescribed to control the symptoms of amphetamine toxicity (beta blockers or benzodiazepines). Withdrawal symptoms may require tranquilizers. DEPRESSION: Your evaluation reveals that you have mental depression. While symptoms may be vague, they often include disturbance of sleep, fatigue, loss of appetite, and general loss of interest in life. While depression may be a side effect of drugs, or a reaction to a major change in your life, many cases have no known cause. If depression is acute, and related to a major loss in your life, you can expect it to clear completely with time. If you have been depressed a long time, are prone to repeated bouts of depression or low mood, or have been thinking of suicide, get help. Depression can be treated with anti-depressant medication and counselling. Long-term depression will often take a few weeks to clear, even with appropriate medication. Follow-up care is important. SUICIDAL IDEATION: Suicidal ideation is a common medical term for thoughts about suicide, which may be as detailed as a formulated plan, without the suicidal act itself. Although most people who undergo suicidal ideation do not commit suicide, some go on to make suicide attempts. The range of suicidal ideation varies greatly from fleeting to detailed planning, role playing, and unsuccessful attempts. While thoughts about suicide are common, most people do not carry out serious actions to commit suicide. Based upon your evaluation and discussion with you, we do not believe you are currently at risk to act upon your thoughts of suicide. You have agreed to return to the Emergency Department, at any time, if you feel inclined to act upon your suicidal thoughts. FOLLOW-UP CARE: If you have been referred to a physician for follow-up care, call the physicians office for an appointment as you were instructed or within the next two days. If you experience worsening or a significant change in your symptoms, notify the physician immediately or return to the Emergency Department at any time for re-evaluation. Referrals: [facility] [Outside] - Follow up as needed
--- NOTE | 2019-05-25 08:52 | PSYCHOLOGICAL NOTE ---
Psych Note - Psych Note Date seen by psych provider: 05/25/19 Time seen by psych provider: 07:50 Psych Note: Reason for Consult: Suicidal ideation Consent Permissions: None provided She reports that he came to [facility] because he has been feeling like he wanted to hurt himself. He reports that she has been within the last few weeks. He denies having a plan. When asked about substance use he admits to methamphetamine use but "only for the last few months" and states his last use was "a couple days ago." Patient reports he is homeless and has nowhere to go. He confirms he has been to [facility] about a week ago and they did put a referral in for [facility] however it takes time to get into the program. Patient reports he wants assistance and denies wanting to . He confirms he would like to obtain and maintain sobriety. Patient is alert and orientated to person, place, time and circumstance. Mood is euthymic with congruent affect. Patient reports passive suicidal ideation i.e. no plans means or intent. He denies homicidal ideation. Delusions are absent and behaviors congruent with an intact reality based presentation ie organized and linear thought process. Eye contact is well-maintained. Conversational speech is within normal rate, tone and prosody. Intellectual abilities appear to be within the average range. Attention and concentration are good. Insight, judgment, impulse control are fair. Clinician contacted [facility]. They confirm they have bed availability and request referral for review. Patient engaged in phone interview; patient was declined due o just being in their facility. Impression\\plan: Patient is cleared from acute psychiatric services. At this time the patient does not meet IVC criteria per MD GS 122C. Incomplete IVC petition has been removed from patient's chart. Patient reports passive holt icidal ideation i.e. no plans means or intent. He confirms he is homeless and is hoping for assistance in sobriety. Patient was recently at [facility] however is requesting assistance in returning. Referral was faxed over. Patient is unable to go to [facility] because of just receiving services from them. Patient report plan to go to his family in [place] or his sister's in [place]. Dr. Chen was consulted to care management of this patient; attending physicians in agreement with recommendations and disposition.
--- NOTE | 2019-05-25 12:55 | ER Document Report ---
Doctor's Note Notes: 05/25/19 12:55 Pt without any complaints. Pt is to be discharged with outpatient resources per psych team. Nontoxic, well appearing.
[2019-05-25 13:14] VITALS: BP 108/70
--- NOTE | 2019-05-25 20:44 | EKG REPORT ---
SEVERITY:- NORMAL ECG - SINUS RHYTHM : Confirmed by: Galen Sandoval 25-May-2019 20:43:01
== END 2019-05-25 13:15 | disposition home or self-care (01) ==
LOC: ER 22:52
DX: R45.851 Suicidal ideations (principal); F19.10 Other psychoactive substance abuse, uncomplicated; Z59.0 Homelessness; F17.200 Nicotine dependence, unspecified, uncomplicated
CPT/HCPCS: 36415; 80053; 80307; 85025; 93005; 93010; 99285